=== PATIENT | female | born 1965 | race American Indian/Alaskan Native ===

== ENCOUNTER 2020-04-11 10:14 | Outpatient (CLI) | payer OTHER ==
[2020-04-11 11:08] LABS: Blood Urea Nitrogen 8 mg/dL (7-17)
--- NOTE | 2020-04-11 12:14 | Cat Scan Report ---
CT ABDOMEN AND PELVIS WITH CONTRAST INDICATION / CLINICAL INFORMATION: LEFT LOWER QUADRANT PAIN,ELEVATED WHITE BLOOD COUNT. TECHNIQUE: Axial CT images were obtained through the abdomen and pelvis after 100 cc Omni [address]. [address] scans at this location are performed using CT dose reduction for ALARA by means of automated expos ure control. COMPARISON: None available. FINDINGS: LOWER CHEST: No significant abnormality. HEPATOBILIARY: No significant abnormality. PANCREAS: No significant abnormality. SPLEEN: No significant abnormality. ADRENALS: No significant abnormality. GENITOURINARY: No significant abnormality. GASTROINTESTINAL/MESENTERY: Peripherally calcified 1 cm lymph node in the perirectal space. No eviden ce of acute appendicitis or significant pericecal inflammatory change. No intrinsic bowel obstruction or inflammation. Small amount of inflammatory change extends from the left adnexa to the proximal si gmoid colon. No focal air or free fluid. RETROPERITONEUM: No significant adenopathy. REPRODUCTIVE ORGANS: Tubular ectasia of the left fallopian tube extending into the left adnexa with m oderate intrinsic and regional inflammatory change. Dilated left fallopian tube appears fluid-filled with significant wall thickening. Right adnexa demonstrates no significant abnormality. VASCULAR: No significant abnormality. SKELETAL SYSTEM: No significant abnormality. ADDITIONAL FINDINGS: Small nodular densities in the outer right breast which are partially visualized . IMPRESSION: 1. Dilated, fluid-filled left fallopian tube with associated inflammatory change concerning for tubo- ovarian abscess. Recommend clinical correlation and further evaluation/follow-up as warranted. 2. Partially visualized small nodular densities in the outer right breast. Recommend verifying that p atient is up-to-date with appropriate mammographic evaluation. Signer Name: Robb Barclay MD Signed: 04/11/2020 12:10 PM Workstation Name: [id number]
== END 2020-04-11 10:15 | disposition home or self-care (01) ==
LOC: CT 10:14
PROVIDERS: ATTEND Nurse Practitioner Family
DX: N70.11 Chronic salpingitis (principal); N63.11 Unspecified lump in the right breast, upper outer quadrant; D72.829 Elevated white blood cell count, unspecified
CPT/HCPCS: 36415; 74177; 82565; 84520; Q9967